=== PATIENT | male | born 1955 | race Caucasian/White ===

== ENCOUNTER 2023-09-28 12:50 | Emergency (ER) | payer OTHER ==
[2023-09-28 13:12] VITALS: RESP 20; TEMP 98.1; BMI 22.5
[2023-09-28 17:47] VITALS: BP 141/97; PULSE 91
[2023-09-28] MEDS ORDERED: carBAMazepine 200 MG TABLET ONE (17:49)
[2023-09-28] MEDS ORDERED: LACTULOSE 20 GM/30 ML UDC (FOR ORAL USE ONLY) ONE (17:49)
[2023-09-28] MEDS ORDERED: BACLOFEN 10 MG TABLET (FP) ONE (17:50)
[2023-09-28] MEDS ORDERED: SENNOSIDES 8.6MG TABLET (FP) PO ONE (17:57)
[2023-09-28] MEDS ORDERED: ATENOLOL 25 MG TABLET (FP) ONE (17:57)
[2023-09-28] MEDS ORDERED: GABAPENTIN 100 MG CAPSULE ONE (17:58)
[2023-09-28] MEDS: BACLOFEN 10 MG TABLET (FP) PO ONE (18:13)
[2023-09-28] MEDS: carBAMazepine 100 MG TAB.CHEW PO ONE (18:13)
[2023-09-28] MEDS: LACTULOSE 20 GM/30 ML UDC (FOR ORAL USE ONLY) PO ONE (18:13)
[2023-09-28] MEDS: GABAPENTIN 100 MG CAPSULE PO ONE (18:14)
[2023-09-28] MEDS: ATENOLOL 25 MG TABLET (FP) PO ONE (18:14)
[2023-09-28] MEDS: FENOFIBRIC ACID 135 MG CAP PO ONE (18:14)
[2023-09-28] MEDS ORDERED: SENNOSIDES 8.8 MG/5 ML SYRUP PO SCH (22:00)
== END 2023-09-28 18:49 | disposition home or self-care (01) ==
LOC: JER 12:50
DX: K94.23 Gastrostomy malfunction (principal); R13.10 Dysphagia, unspecified
CPT/HCPCS: 74018-TC-FY; 99283-25; J0475

== ENCOUNTER 2023-10-08 15:31 | Emergency (ER) | payer OTHER ==
[2023-10-08 16:01] VITALS: BMI 22.5
[2023-10-08 18:45] LABS: INR 1.04 (0.83-1.09); PROTHROMBIN TIME (PATIENT) 12.1 SEC (9.7-13.0)
[2023-10-08 18:47] LABS: ACTIVATED PTT 28.4 SECONDS (25.2-36.5)
[2023-10-08 19:04] LABS: POTASSIUM 5.3 mmol/L (3.5-5.1)
[2023-10-08 19:06] LABS: ALBUMIN 3.1 g/dl (3.4-5.0); BLOOD UREA NITROGEN 20.6 mg/dL (7-18)
[2023-10-08 19:09] LABS: CREATININE 0.8 mg/dL (0.55-1.3)
[2023-10-08 19:11] LABS: BILIRUBIN,TOTAL 0.2 mg/dL (0.2-1)
[2023-10-08 22:47] VITALS: BP 129/83; PULSE 72; RESP 20; TEMP 97.2
== END 2023-10-09 02:55 | disposition home or self-care (01) ==
LOC: JER 15:31
PROC: 0HQ1XZZ Repair Face Skin, External Approach (ICD-10-PCS; principal; 2023-10-08)
DX: S01.91XA Laceration without foreign body of unspecified part of head, initial encounter (principal); S01.81XA Laceration without foreign body of other part of head, initial encounter; S01.111A Laceration without foreign body of right eyelid and periocular area, initial encounter; M54.2 Cervicalgia; H53.9 Unspecified visual disturbance; W05.0XXA Fall from non-moving wheelchair, initial encounter; Y92.199 Unspecified place in other specified residential institution as the place of occurrence of the external cause
CPT/HCPCS: 36415; 70450-TC; 70486-TC; 71045-TC-FY; 72125-TC; 72170-TC-FY; 80053; 82550; 82553; 82962; 84484; 85610; 85730; 86850; 86900; 86901; 93005; 93010; 99285-25

== ENCOUNTER 2024-05-15 18:29 | Emergency (ER) | payer OTHER ==
[2024-05-15 18:43] VITALS: BMI 25.6
[2024-05-15] MEDS: GABAPENTIN 250 MG/5 ML ORAL SOLUTION, 470 ML BOTTLE GT ONE (23:10)
[2024-05-15] MEDS: carBAMazepine 200 MG/10 ML UNIT-DOSE CUP GT ONE (23:11)
[2024-05-16] MEDS: GABAPENTIN 100 MG CAPSULE PO ONE (04:48)
[2024-05-16] MEDS: carBAMazepine 100 MG TAB.CHEW PO ONE (04:48)
[2024-05-16] MEDS ORDERED: BACLOFEN 10 MG TABLET (FP) ONE (05:43)
[2024-05-16 05:58] VITALS: BP 169/93; PULSE 72; RESP 16; TEMP 98.5
[2024-05-16] MEDS: BACLOFEN 10 MG TABLET (FP) PO ONE (06:00)
== END 2024-05-16 06:42 ==
LOC: JER 18:29
DX: K94.23 Gastrostomy malfunction (principal)
CPT/HCPCS: 74176-TC; 74190-TC-FY; 99284-25; J0475

== ENCOUNTER 2024-05-21 13:10 | Inpatient (IN) | payer OTHER ==
[2024-05-21] MEDS: IOHEXOL (OMNIPAQUE IV) 350 MG/ML - 100 ML BOTTLE PEG ONE (15:24)
[2024-05-21] MEDS ORDERED: FAMOTIDINE 20 MG/50 ML IVPB 20 MG/50 ML MG IVPB ONE (15:34)
[2024-05-21] MEDS: FAMOTIDINE 20 MG/50 ML IVPB 20 MG/50 ML MG IVPB ONE (15:55)
[2024-05-21] MEDS: IOHEXOL 180 MG/1 ML ML IJ ONE (15:56)
[2024-05-21 16:23] LABS: BASO % 1.2 % (0-2.0); HEMATOCRIT 41.4 % (35.4-49); HEMOGLOBIN 14.6 GM/dL (11.7-16.9); LYMPH % 19.8 % (8-40); MCHC 35.2 g/dl (32.0-35.9); MEAN CELL VOLUME 90.9 fl (80-96); MEAN PLT VOLUME 7.4 fl (7.5-11.1); PLATELET COUNT 334 10^3/uL (134-434); RBC 4.56 M/mm3 (4.00-5.60); RDW 13.4 % (11.9-15.9); WHITE BLOOD COUNT 10.4 K/mm3 (4.0-10.0)
[2024-05-21 16:29] LABS: INR 1.03 (0.83-1.09); PROTHROMBIN TIME (PATIENT) 11.8 SEC (9.7-13.0)
[2024-05-21 16:33] LABS: ACTIVATED PTT 30.4 SECONDS (25.2-36.5)
[2024-05-21 16:36] LABS: POTASSIUM 4.9 mmol/L (3.5-5.1)
[2024-05-21 16:37] LABS: CALCIUM 9.8 mg/dL (8.5-10.1)
[2024-05-21 16:38] LABS: ALBUMIN 3.5 g/dl (3.4-5.0); BLOOD UREA NITROGEN 17.8 mg/dL (7-18); MAGNESIUM 2.2 mg/dL (1.8-2.4)
[2024-05-21 16:41] LABS: CREATININE 0.8 mg/dL (0.55-1.3)
[2024-05-21 16:43] LABS: BILIRUBIN,TOTAL 0.3 mg/dL (0.2-1); TOT PROT 7.6 g/dl (6.4-8.2)
[2024-05-21] MEDS ORDERED: ACETAMINOPHEN INJECTION 100 ML ONE (19:10)
[2024-05-21] MEDS: ACETAMINOPHEN 1000 MG/100 ML BAG IVPB ONE (20:22)
[2024-05-21] MEDS ORDERED: hydrALAZINE HCL 20 MG/ML VIAL IVPUSH PRN (20:37)
[2024-05-21] MEDS ORDERED: carBAMazepine 200 MG/10 ML UNIT-DOSE CUP PEG SCH ×2 (22:00)
[2024-05-21] MEDS ORDERED: ATENOLOL 50 MG TABLET (FP) ONE (22:28)
[2024-05-21] MEDS ORDERED: ATORVASTATIN CA 10 MG TABLET (FP) ONE (22:30)
[2024-05-21] MEDS ORDERED: BACLOFEN 10 MG TABLET (FP) ONE (22:30)
[2024-05-21] MEDS ORDERED: LACTULOSE 20 GM/30 ML UDC (FOR ORAL USE ONLY) ONE (22:30)
[2024-05-21] MEDS ORDERED: HEPARIN NA (PORCINE) 5,000 UNITS/ML 1ML VIAL ONE (22:31)
[2024-05-21] MEDS: ATENOLOL 25 MG TABLET (FP) PEG SCH (23:06)
[2024-05-21] MEDS: D5-1/2NS+20 MEQ KCL - 20 MEQ/1,000 ML INFUS.BAG IV SCH (23:07)
[2024-05-21] MEDS: BACLOFEN 10 MG TABLET (FP) PEG SCH (23:07)
[2024-05-21] MEDS: HEPARIN NA (PORCINE) 5,000 UNITS/ML 1ML VIAL SQ SCH (23:07)
[2024-05-21] MEDS: LACTULOSE 20 GM/30 ML UDC (FOR ORAL USE ONLY) PEG SCH (23:07)
[2024-05-21] MEDS: GABAPENTIN 250 MG/5 ML ORAL SOLUTION, 470 ML BOTTLE PEG SCH (23:08)
[2024-05-21] MEDS: carBAMazepine 200 MG/10 ML UNIT-DOSE CUP PEG SCH (23:08)
[2024-05-22] MEDS ORDERED: CEFTRIAXONE 1 GM/50 ML BAG ONE (02:02)
[2024-05-22] MEDS: DEXTROSE 5%-0.45% SALINE 1,000 ML IV SCH (03:07)
[2024-05-22 09:10] LABS: BASO % 0.9 % (0-2.0); EOS % 2.7 % (0-4.5); HEMATOCRIT 40.1 % (35.4-49); LYMPH % 14.6 % (8-40); MEAN CELL VOLUME 91.4 fl (80-96); MEAN PLT VOLUME 7.4 fl (7.5-11.1); MONO % 6.4 % (3.8-10.2); NEUT % 75.4 % (42.8-82.8); PLATELET COUNT 328 10^3/uL (134-434); RBC 4.39 M/mm3 (4.00-5.60); RDW 13.5 % (11.9-15.9); WHITE BLOOD COUNT 10.4 K/mm3 (4.0-10.0)
[2024-05-22 09:22] LABS: POTASSIUM 4.3 mmol/L (3.5-5.1)
[2024-05-22 09:30] LABS: ALBUMIN 3.2 g/dl (3.4-5.0); CALCIUM 9.4 mg/dL (8.5-10.1)
[2024-05-22 09:31] LABS: BLOOD UREA NITROGEN 18.6 mg/dL (7-18); MAGNESIUM 2.2 mg/dL (1.8-2.4)
[2024-05-22 09:34] LABS: CREATININE 0.8 mg/dL (0.55-1.3)
[2024-05-22 09:35] LABS: BILIRUBIN,TOTAL 0.4 mg/dL (0.2-1)
[2024-05-22] MEDS ORDERED: ATENOLOL 25 MG TABLET (FP) PEG SCH (10:00)
[2024-05-22 13:29] VITALS: BMI 21.1
[2024-05-22] MEDS: IOHEXOL (OMNIPAQUE IV) 350 MG/ML - 100 ML BOTTLE PO ONE (14:08)
[2024-05-22] MEDS: carBAMazepine 100 MG/5 ML UNIT-DOSE CUP GT SCH (16:20)
[2024-05-22] MEDS: ATORVASTATIN CA 20 MG TABLET (FP) PEG SCH (21:32)
[2024-05-24 07:16] VITALS: PULSE 80
[2024-05-24 08:19] VITALS: BP 115/78; RESP 19; TEMP 97
== END 2024-05-24 13:25 | DRG 395 ==
LOC: JER 13:10 → JERBED 20:50 → J7W 05-22 03:58
PROVIDERS: ADMIT Family Medicine; ATTEND Family Medicine
PROC: 0D20XUZ Change Feeding Device in Upper Intestinal Tract, External Approach (ICD-10-PCS; principal; 2024-05-22)
DX: K94.23 Gastrostomy malfunction (principal); I10 Essential (primary) hypertension; K52.9 Noninfective gastroenteritis and colitis, unspecified; E78.5 Hyperlipidemia, unspecified; K21.9 Gastro-esophageal reflux disease without esophagitis; F31.9 Bipolar disorder, unspecified; G62.9 Polyneuropathy, unspecified; Y83.8 Other surgical procedures as the cause of abnormal reaction of the patient, or of later complication, without mention of misadventure at the time of the procedure
CPT/HCPCS: 36415; 74018-TC-FY; 74177-TC; 80053; 83735; 84443; 85025; 85610; 85730; 86850; 86900; 86901; 93005; 93010; 99285-25; J0475; J1644; Q9967

== ENCOUNTER 2024-08-02 13:11 | Emergency (ER) | payer OTHER ==
[2024-08-02 13:55] VITALS: BP 130/82; PULSE 92; RESP 20; TEMP 98.5; BMI 77.0
[2024-08-02] MEDS: carBAMazepine 200 MG/10 ML UNIT-DOSE CUP PO ONE (17:34)
== END 2024-08-02 20:04 ==
LOC: JER 13:11
DX: K94.23 Gastrostomy malfunction (principal)
CPT/HCPCS: 74018-TC-FY; 99283-25

== ENCOUNTER 2024-08-18 22:39 | Emergency (ER) | payer OTHER ==
[2024-08-18 22:58] VITALS: BP 156/88; PULSE 81; RESP 18; TEMP 98.3; BMI 23.1
== END 2024-08-19 04:07 ==
LOC: JER 22:39
DX: K94.23 Gastrostomy malfunction (principal)
CPT/HCPCS: 74018-TC-FY; 99283-25

== ENCOUNTER 2024-09-22 03:35 | Emergency (ER) | payer OTHER ==
[2024-09-22 03:55] VITALS: RESP 16; TEMP 98.7; BMI 19.8
[2024-09-22] MEDS: GABAPENTIN 250 MG/5 ML ORAL SOLUTION, 470 ML BOTTLE GT ONE (06:05)
[2024-09-22] MEDS ORDERED: BACLOFEN 10 MG TABLET (FP) ONE (06:10)
[2024-09-22] MEDS ORDERED: carBAMazepine 200 MG TABLET ONE (06:10)
[2024-09-22] MEDS: carBAMazepine 200 MG TABLET GT ONE (06:46)
[2024-09-22] MEDS: BACLOFEN 10 MG TABLET (FP) PO ONE (06:46)
[2024-09-22 10:34] VITALS: BP 160/90; PULSE 78
== END 2024-09-22 10:34 ==
LOC: JER 03:35
PROC: 0DH67UZ Insertion of Feeding Device into Stomach, Via Natural or Artificial Opening (ICD-10-PCS; principal; 2024-09-22)
DX: K94.23 Gastrostomy malfunction (principal)
CPT/HCPCS: 74018-TC-FY; 99283-25; J0475

== ENCOUNTER 2024-10-12 05:17 | Inpatient (IN) | payer OTHER ==
[2024-10-12] MEDS ORDERED: PANTOPRAZOLE SODIUM 40 MG VIAL ONE (05:23)
[2024-10-12] MEDS ORDERED: CEFTRIAXONE 1 G/50 ML PREMIX 50 ML IVPB ONE (05:26)
[2024-10-12] MEDS ORDERED: methylPREDNISolone NA SUCC 125 MG/2 ML VIAL ONE (05:30)
[2024-10-12] MEDS ORDERED: TERBUTALINE SULFATE 1 MG/1 ML VIAL SQ ONE (05:38)
[2024-10-12] MEDS ORDERED: MAGNESIUM 1GM/D5W - 1 GM/100 ML IVPB IVPB ONE (05:38)
[2024-10-12] MEDS ORDERED: AZITHROMYCIN IVPB 500 MG/250 ML BAG IVPB ONE (05:38)
[2024-10-12] MEDS: SODIUM CHLORIDE 0.9% 500 ML INFUS.BAG IV ONE ×4 (05:45→09:48)
[2024-10-12] MEDS: PANTOPRAZOLE SODIUM 40 MG VIAL IVPUSH ONE (05:45)
[2024-10-12] MEDS: TERBUTALINE SULFATE 1 MG/1 ML VIAL SQ ONE (05:45)
[2024-10-12] MEDS: CEFTRIAXONE 1,000 MG in DEXTROSE 5%-WATER - 50 ML IVPB ONE (05:45)
[2024-10-12] MEDS: methylPREDNISolone NA SUCC 125 MG/2 ML VIAL IVPUSH ONE (05:45)
[2024-10-12] MEDS: MAGNESIUM SULF 50% (8.12 MEQ/2 ML-1 GM VIAL) IVPB ONE (05:45)
[2024-10-12] MEDS: AZITHROMYCIN IVPB 500 MG in DEXTROSE 5%-WATER - 250 ML IVPB ONE (05:45)
[2024-10-12] MEDS: ALBUTEROL SO4 2.5/IPRATROPIUM 0.5 INH SOL 3 ML VIAL.NEB. NEB SCH (05:46)
[2024-10-12] MEDS ORDERED: ACETAMINOPHEN INJECTION 100 ML ONE ×3 (05:57→10:18)
[2024-10-12 06:01] LABS: BASO % 0.2 % (0-2.0); EOS % 0.2 % (0-4.5); HEMATOCRIT 50.3 % (35.4-49); HEMOGLOBIN 16.6 GM/dL (11.7-16.9); LYMPH % 44.2 % (8-40); MCH 32.1 pg (25.7-33.7); MEAN CELL VOLUME 97.5 fl (80-96); MEAN PLT VOLUME 8.7 fl (7.5-11.1); MONO % 1.7 % (3.8-10.2); NEUT % 53.7 % (42.8-82.8); PLATELET COUNT 327 10^3/uL (134-434); RBC 5.15 M/mm3 (4.00-5.60); RDW 14.3 % (11.9-15.9); WHITE BLOOD COUNT 6.6 K/mm3 (4.0-10.0)
[2024-10-12 06:03] LABS: VENOUS BASE EXCESS -2.1 mmol/L (-2-2); VENOUS O2 SATURATION 32.1 % (70-80); VENOUS PH 7.203 (7.310-7.410)
[2024-10-12 06:07] VITALS: BMI 25.0
[2024-10-12 06:08] LABS: INR 1.08 (0.83-1.09); PROTHROMBIN TIME (PATIENT) 11.9 SEC (9.7-13.0)
[2024-10-12] MEDS: ALBUTEROL SO4 0.083% IH SOL 2.5 MG/3 ML VIAL.NEB. NEB SCH (06:15)
[2024-10-12] MEDS: ACETAMINOPHEN 1000 MG/100 ML BAG IVPB ONE ×2 (06:15→09:49)
[2024-10-12 06:18] LABS: POTASSIUM 4.4 mmol/L (3.5-5.1); VENOUS PCO2 74.5 mmHg (38-52)
[2024-10-12 06:21] LABS: ALBUMIN 3.1 g/dl (3.4-5.0); BLOOD UREA NITROGEN 41.8 mg/dL (7-18); CALCIUM 8.9 mg/dL (8.5-10.1); MAGNESIUM 2.8 mg/dL (1.8-2.4)
[2024-10-12 06:24] LABS: CREATININE 1.8 mg/dL (0.55-1.3)
[2024-10-12 06:26] LABS: BILIRUBIN,TOTAL 0.7 mg/dL (0.2-1); TOT PROT 7.2 g/dl (6.4-8.2)
[2024-10-12 06:29] LABS: N-TERMINAL BNP 97.6 pg/ml (5-125)
[2024-10-12] MEDS ORDERED: ONDANSETRON 4 MG/2 ML VIAL ONE (06:44)
[2024-10-12] MEDS: ONDANSETRON 4 MG/2 ML VIAL IVPUSH ONE (06:49)
[2024-10-12 07:00] LABS: LACTIC ACID 6.9 mmol/L (0.4-2.0)
[2024-10-12 08:10] LABS: URINE APPEARANCE CLOUDY; URINE BILIRUBIN 1+ (NEGATIVE); URINE COLOR DK YELLOW; URINE GLUCOSE (UA) NEGATIVE (NEGATIVE); URINE KETONE TRACE (NEGATIVE); URINE LEUK ESTERASE 1+ (NEGATIVE); URINE NITRITE NEGATIVE (NEGATIVE); URINE PROTEIN 1+ (NEGATIVE); URINE UROBILINOGEN 0.2 mg/dL (0.2-1.0)
[2024-10-12 08:35] LABS: EPI CELLS 1 /uL (0-25.1); URINE RBC 23 /uL (0-23.9); URINE WBC 260 /uL (0-25.8)
[2024-10-12 08:36] LABS: HYALINE CASTS 2 /uL (0-3.1); URINE BACTERIA 43131 /uL (0-1359)
[2024-10-12 08:43] LABS: LACTIC ACID 6.9 mmol/L (0.4-2.0)
[2024-10-12 08:53] LABS: VENOUS BASE EXCESS -6.8 mmol/L (-2-2); VENOUS O2 SATURATION 79.2 % (70-80); VENOUS PCO2 45.6 mmHg (38-52); VENOUS PH 7.264 (7.310-7.410)
[2024-10-12] MEDS: ALBUMIN HUMAN 5% 250 ML IV SOLUTION IV ONE (09:17)
[2024-10-12 09:18] LABS: LACTIC ACID 6.9 mmol/L (0.4-2.0)
[2024-10-12] MEDS ORDERED: ACETAMINOPHEN 1000 MG/100 ML BAG IVPB PRN (09:36)
[2024-10-12] MEDS: LACTATED RINGERS SOLUTION 1,000 ML/1,000 ML INFUS.BAG IV SCH (09:49)
[2024-10-12] MEDS ORDERED: PIPERACILLIN/TAZOB 3.375 GM 3.375 GM/50 ML BAG IVPB ONE (09:50)
[2024-10-12] MEDS ORDERED: PIPERACILLIN/TAZOB 3.375 GM 3.375 GM in DEXTROSE 5%-WATER - 50 ML IVPB SCH (10:00)
[2024-10-12] MEDS ORDERED: ACETAMINOPHEN 1000 MG/100 ML BAG IVPB ONE (10:18)
[2024-10-12] MEDS: PIPERACILLIN/TAZOB 3.375 GM 50 ML IVPB SCH (10:19)
[2024-10-12 14:15] VITALS: TEMP 97.8
[2024-10-12 16:32] VITALS: BP 83/59; PULSE 110; RESP 25
[2024-10-12] MEDS ORDERED: LORazepam 2 MG/ML SDV VIAL ONE (17:01)
[2024-10-12] MEDS ORDERED: MORPHINE SULFATE/0.9% NACL/PF 100 MG/100 ML BAG ONE (17:01)
[2024-10-12] MEDS: MORPHINE SULFATE/0.9% NACL/PF 100 MG/100 ML BAG IVPB SCH (17:04)
[2024-10-12] MEDS: SCOPOLAMINE HYDROBROMIDE 1 PATCH PATCH.TD72 TD SCH (17:06)
[2024-10-12] MEDS: LORazepam 2 MG/ML SDV VIAL IVPUSH SCH (17:06)
[2024-10-12] MEDS ORDERED: VANCOMYCIN 1 GM PREMIX (F) 1 GM/200 ML BAG IVPB ONE (19:00)
[2024-10-12] MEDS ORDERED: PIPERACILLIN/TAZOB 3.375 GM 50 ML IVPB SCH (19:00)
[2024-10-12] MEDS ORDERED: MUPIROCIN 2% TOPICAL OINTMENT FOR DECOLONIZATION NS SCH (22:00)
[2024-10-12] MEDS ORDERED: CHLORHEXIDINE GLUCONATE 4% CLEANSER FOR DECOLONIZATION TP SCH (22:00)
[2024-10-13] MEDS ORDERED: ENOXAPARIN NA (PORCINE) 30 MG/0.3 ML DISP.SYRIN SQ SCH (10:00)
[2024-10-13] MEDS ORDERED: ENOXAPARIN NA (PORCINE) 40 MG/0.4 ML DISP.SYRIN SQ SCH (10:00)
[2024-10-13] MEDS ORDERED: PANTOPRAZOLE SODIUM 40 MG VIAL IVPUSH SCH (10:00)
== END 2024-10-12 17:35 | disposition expired | DRG 871 ==
LOC: JER 05:17 → JERBED 06:42 → JICU 12:37
PROVIDERS: ADMIT Internal Medicine Pulmonary Disease; ATTEND Internal Medicine Pulmonary Disease
DX: A41.9 Sepsis, unspecified organism (principal); J69.0 Pneumonitis due to inhalation of food and vomit; J96.01 Acute respiratory failure with hypoxia; R65.21 Severe sepsis with septic shock; K56.609 Unspecified intestinal obstruction, unspecified as to partial versus complete obstruction; E87.20 Acidosis, unspecified; N39.0 Urinary tract infection, site not specified; N17.9 Acute kidney failure, unspecified; K92.0 Hematemesis; I10 Essential (primary) hypertension; E78.5 Hyperlipidemia, unspecified; K21.9 Gastro-esophageal reflux disease without esophagitis; F31.9 Bipolar disorder, unspecified; K59.81 Ogilvie syndrome; F20.9 Schizophrenia, unspecified; Z93.1 Gastrostomy status; I46.9 Cardiac arrest, cause unspecified
CPT/HCPCS: 0241U-QW; 36415; 71045-TC-FY; 74018-TC-FY; 80053; 81003; 82272; 82803; 83605; 83735; 83880; 84484; 85025; 85610; 85730; 86850; 86900; 86901; 87040; 87086; 87186; 93005; 93010; 94660; 99285-25; J0131